=== PATIENT | male | born 1965 | race Caucasian/White ===

== ENCOUNTER 2024-05-09 07:52 | Outpatient (AMB) | payer MEDICAID, SELFPAY ==
--- NOTE | 2024-05-09 08:10 | PD.ORTHCLVIS ---
Vital signs 05/09/24 08:11 Height 1.85 m Height Method Stated Weight 138.147 kg Weight Measurement Method Standing Scale BMI 40.1 BP 128/85 H Blood Pressure Source Automatic Cuff Blood Pressure Location Left Upper Arm Position Sitting Respiration 18 Pulse 82 Pulse Source Monitor Temp 97.3 F Temp Source Temporal Artery Scan Pulse Oximetry (%) 93 L Oxygen Delivery Method Room Air Med/Allergies Allergies & Medications Allergies No Known Allergies Allergy (Verified 05/09/24 08:12) Medication Reconciliation aspirin 81 mg tablet,delayed release 81 mg PO QDAY 05/09/24 [History Confirmed 05/09/24] atorvastatin 80 mg tablet 80 mg PO QDAY 05/09/24 [History Confirmed 05/09/24] carvedilol phosphate 10 mg capsule,[id number] multiphase 10 mg PO QAM 05/09/24 [History Confirmed 05/09/24] chlorthalidone 25 mg tablet 25 mg PO QDAY 05/09/24 [History Confirmed 05/09/24] fenofibrate 160 mg tablet 160 mg PO QDAY 05/09/24 [History Confirmed 05/09/24] losartan 100 mg tablet 100 mg PO QDAY 05/09/24 [History Confirmed 05/09/24] meloxicam 7.5 mg tablet 7.5 mg PO QDAY #45 tabs 05/09/24 [Rx] metformin 1,000 mg tablet 1,000 mg PO QDAY 05/09/24 [History Confirmed 05/09/24] Exam Exam Patient is in no acute distress and is cooperative with the examination today. Breathing is nonlabored. In no respiratory distress. Patient has no paraspinal tenderness. Spinal deformity cannot be appreciated. The gait of the patient is nonantalgic Bilateral extremities were evaluated and demonstrates sensation intact to light touch. Palpable pedal pulses are present. No significant edema is present. Bilateral knees were examined and the patient has full strength and range of motion.. The left hip was examined. Patient was able to flex to 90 degrees, adduct to 30 degrees, abduct to 40 degrees, internally rotate to 20 degrees, and externally rotate to 20 degrees. Patient has a negative logroll. Stinchfield is negative. The patient is nontender diffusely to touch. The right hip was examined. Patient was able to flex to 90 degrees, adduct to 30 degrees, abduct to 40 degrees, internally rotate to 10 degrees, and externally rotate to 15 degrees. Positive The stinchfield is negative. Assessment and Plan Problem List (1) Arthritis of right hip: Status: Acute Plan: Patient is a 58-year-old male with obesity and right hip versus lumbar radiculopathy. He has some pain on logroll. We will first see if his diabetes is controlled and obtain new x-rays as the last x-rays were over a year and only demonstrates mild arthritis. Depending on what the x-rays show, I will consider a diagnostic right hip cortisone injection to help differentiate the back from hip pain. We also discussed weight loss in great detail. He needs to find out what his hemoglobin A1c is as well. 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 4 ([id number]) MA Intake Visit Data Collection New Patient or Established: New Patient (never been to [facility]) Reason for Visit:: RIGHT HIP PAIN Seen by Clinical Staff ONLY (RN/MA): No Wire Products Inspector Required: No PCP or OBGYN visit in last 3 months: Yes Hx Now: No Do You Feel Safe at Home: Yes Authorities Contacted: N/A Questionairres Past Medical History Past Medical History Have you ever been diagnosed with any of the following: Cardiology Problems Hypertension: Yes Respiratory Problems Smoking: Yes (15 YEARS) Smoking Cessation Counseling: Yes Smoking Exposure: Yes Endocrine Problems Diabetes Mellitus Type 2: Yes Subjective Visit Visit for: new patient and hip (RIGHT) Immunization / Flu Flu Vaccine in the Last 12 Months: No Flu Vaccine Exclusion Criteria: Refused by Patient History of Present Illness Chief complaint: Right hip pain Date of injury / onset of symptoms: 05/2023 Patient is a pleasant 58-year-old male with right hip pain and back pain. This been ongoing for quite a while. He has not tried much conservative treatment. He does have diabetes and He is unsure if it is controlled. He reports the pain starts on the side and radiates down to the knee. He is using a cane for the pain. 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
[2024-05-09 08:11] VITALS: BP 128/85; PULSE 82; RESP 18; TEMP 36.3; O2SAT 93; BMI 40.1
== END 2024-05-09 08:29 | disposition home or self-care (01) ==
PROVIDERS: PCP Physician Assistant; Referring Provider Physician Assistant; Supervising Provider Orthopaedic Surgery Adult Reconstructive Orthopaedic Surgery; Visit Provider Orthopaedic Surgery Adult Reconstructive Orthopaedic Surgery
DX: M16.11 Unilateral primary osteoarthritis, right hip (principal)
CPT/HCPCS: 99204; G0463

== ENCOUNTER 2024-05-26 09:52 | Outpatient (AMB) | payer MEDICAID, SELFPAY ==
[2024-05-26 10:55] VITALS: BP 135/86; PULSE 82; RESP 18; TEMP 36.8; O2SAT 97; BMI 40.2
--- NOTE | 2024-05-26 10:55 | PD.ORTHCLVIS ---
Vital signs 05/26/24 10:55 Height 1.85 m Height Method Stated Weight 137.694 kg Weight Measurement Method Standing Scale BMI 40.2 BP 135/86 H Blood Pressure Source Automatic Cuff Blood Pressure Location Right Upper Arm Position Sitting Respiration 18 Pulse 82 Pulse Source Monitor Temp 98.2 F Temp Source Temporal Artery Scan Pulse Oximetry (%) 97 Oxygen Delivery Method Room Air Med/Allergies Allergies & Medications Allergies No Known Allergies Allergy (Verified 05/26/24 10:56) Medication Reconciliation aspirin 81 mg tablet,delayed release 81 mg PO QDAY 05/09/24 [History Confirmed 05/26/24] atorvastatin 80 mg tablet 80 mg PO QDAY 05/09/24 [History Confirmed 05/26/24] carvedilol phosphate 10 mg capsule,[id number] multiphase 10 mg PO QAM 05/09/24 [History Confirmed 05/26/24] chlorthalidone 25 mg tablet 25 mg PO QDAY 05/09/24 [History Confirmed 05/26/24] fenofibrate 160 mg tablet 160 mg PO QDAY 05/09/24 [History Confirmed 05/26/24] losartan 100 mg tablet 100 mg PO QDAY 05/09/24 [History Confirmed 05/26/24] meloxicam 7.5 mg tablet 7.5 mg PO QDAY #45 tabs 05/09/24 [Rx Confirmed 05/26/24] metformin 1,000 mg tablet 1,000 mg PO QDAY 05/09/24 [History Confirmed 05/26/24] Exam Exam Patient is in no acute distress and is cooperative with the examination today. Breathing is nonlabored. In no respiratory distress. Patient has no paraspinal tenderness. Spinal deformity cannot be appreciated. The gait of the patient is nonantalgic Bilateral extremities were evaluated and demonstrates sensation intact to light touch. Palpable pedal pulses are present. No significant edema is present. Bilateral knees were examined and the patient has full strength and range of motion.. The left hip was examined. Patient was able to flex to 90 degrees, adduct to 30 degrees, abduct to 40 degrees, internally rotate to 20 degrees, and externally rotate to 20 degrees. Patient has a negative logroll. Stinchfield is negative. The patient is nontender diffusely to touch. The right hip was examined. Patient was able to flex to 90 degrees, adduct to 30 degrees, abduct to 40 degrees, internally rotate to 10 degrees, and externally rotate to 15 degrees. Positive The stinchfield is negative. Right hip x-rays demonstrate mild to moderate arthritis of the right hip. There are mild osteophytes Assessment and Plan Problem List (1) Arthritis of right hip: Status: Acute Plan: Patient is a 58-year-old male with obesity and right hip Osteoarthritis versus lumbar radiculopathy. He has some pain on logroll. The x-rays demonstrate mild to moderate arthritis and I am concerned that a lot of his pain is actually from his back. He points to the buttocks inside of his hip rather than the groin. Furthermore, hip x-rays only demonstrate mild to moderate joint space narrowing. I would like to workup his back and we can try a intra-articular hip injection to help differentiate the back from hip pain Office Procedures GNS Level of Care Nursing/Assessment Patient Status: Established Patient Nursing Assessment/Reassesment: Medication Reconciliation, Update PMH in EMR and Vital Signs Coordination of Care: Complex Care and Chronic Disease 1-5, Education Complex Pt/Fam, Consent,records obtained, informed consent, Results/Orders obtained and Staff clarify orders Established Patient Charge Established Patient Point Assignment: 95 Established Patient Point Charge: EP Level 3 (80-115) MA Intake Visit Data Collection New Patient or Established: Established Patient (seen at [facility] within 3 years) Reason for Visit:: F/U XRAYS Seen by Clinical Staff ONLY (RN/MA): No Verbal consent obtained for Telemed visit?: No Billet 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 Required: No PCP or OBGYN visit in last 3 months: Yes Hx Now: No Do You Feel Safe at Home: Yes Authorities Contacted: N/A Questionairres Past Medical History Past Medical History Have you ever been diagnosed with any of the following: Cardiology Problems Hypertension: Yes Respiratory Problems Smoking: Yes (15 YEARS) Smoking Cessation Counseling: Yes Smoking Exposure: Yes Endocrine Problems Diabetes Mellitus Type 2: Yes Subjective Visit Visit for: follow up visit and x-rays Immunization / Flu Flu Vaccine in the Last 12 Months: No Flu Vaccine Exclusion Criteria: No Exclusion Criteria History of Present Illness Chief complaint: F/U XRAYS Date of injury / onset of symptoms: 05/2023 Patient is a pleasant 58-year-old male with right hip pain and back pain. This been ongoing for quite a while. He has not tried much conservative treatment. He does have diabetes and He is unsure if it is controlled. He reports the pain starts on the side and radiates down to the knee. He is using a cane for the pain. 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
== END 2024-05-26 11:20 | disposition home or self-care (01) ==
LOC: HODSRG 09:52
PROVIDERS: PCP Physician Assistant; Referring Provider Physician Assistant; Supervising Provider Orthopaedic Surgery Adult Reconstructive Orthopaedic Surgery; Visit Provider Orthopaedic Surgery Adult Reconstructive Orthopaedic Surgery
DX: M16.11 Unilateral primary osteoarthritis, right hip (principal); I10 Essential (primary) hypertension; E11.9 Type 2 diabetes mellitus without complications; E66.9 Obesity, unspecified; Z68.41 Body mass index [BMI] 40.0-44.9, adult
CPT/HCPCS: 99213; G0463